=== PATIENT | female | born 1935 | race Caucasian/White ===

== ENCOUNTER 2016-07-13 20:19 | Emergency (ER) | payer OTHER, MEDICARE ==
[~2016-07-13] VITALS: Ht 157.5 cm; Wt 49.9 kg
[~2016-07-13 20:19] MED LIST: ACETAMINOPHEN325 M1; ATIVAN0.5 MG; BENADRYL25 MG PO; CARDIZEM CD120 MG; CRANBERRY CONC500 MG; EFFEXOR XR150 MG; ESTRACE0.5 MG; EXELON 9.5 MG9.5 MG; EXELON1 EAC1 TD; FLUOCINONI0.05 %/30 TP; GABAPENTIN100 MG PO; IBUPROFEN 600600 M1; LABETALOL HCL100 MG; MULTIVITAMINS1 EAC7; NAMENDA 10 MG T10 MG; NORCO 5-325 TA1 EACH PO; PENTAZOCINE/NAL1 TA1; PILOCARPINE HCL5 M1; PRAVACHOL40 MG PO; PREDNISONE 5 MG5 M1 PO; PREDNISONE50 MG PO; PRELIEF65 MG PO; RESTORIL15 MG; SENOKOT-S1 TA1; SEROQUEL 25 MG25 M1 PO; STOOL SOFTENER100 MG PO; TRAMADOL 50 MG50 MG PO; TRAZODONE 150150 M1; TYLENOL325 MG PO; VITAMIN D400 UNI1; ZOLOFT100 MG; [UNRECOGNIZED DRUG - OTHER]; [UNRECOGNIZED DRUG - REMARK]
[2016-07-13] MEDS ORDERED: IBUPROFEN 200200 M1 (20:35)
[2016-07-13] MEDS ORDERED: ALEVE220 MG (20:35)
[2016-07-13] MEDS ORDERED: CENTRUM SILVER1 EAC4 PO (20:37)
[2016-07-13] MEDS ORDERED: TRAZODONE HCL50 MG PO (20:41)
[2016-07-13] MEDS ORDERED: ARICEPT 5 MG TAB5 MG (20:42)
[2016-07-13] MEDS ORDERED: PRELIEF (20:45)
[2016-07-13] MEDS ORDERED: CLARITIN10 MG PO (20:45)
[2016-07-13] MEDS ORDERED: SENOKOT8.6 MG (20:45)
[2016-07-13] MEDS ORDERED: PREDNISONE 5 MG5 M1 PO (20:46)
[2016-07-13] MEDS ORDERED: DAPSONE25 MG (20:46)
[2016-07-13] MEDS ORDERED: XALATAN2.5 ML (20:46)
[2016-07-13] MEDS ORDERED: LIPITOR 20 MG T20 M1 PO (20:47)
[2016-07-13] MEDS ORDERED: BENADRYL25 MG (20:47)
[2016-07-13] MEDS ORDERED: ATIVAN0.5 MG (20:47)
[2016-07-13] MEDS ORDERED: REQUIP 0.25 M0.25 MG (20:48)
[2016-07-13 21:52] VITALS: BP 127/56
== END 2016-07-13 21:57 | disposition home or self-care (01) ==
LOC: ER 20:19
DX: F41.0 Panic disorder [episodic paroxysmal anxiety] (principal); G30.8 Other Alzheimer's disease; F02.80 Dementia in other diseases classified elsewhere, unspecified severity, without behavioral disturbance, psychotic disturbance, mood disturbance, and anxiety; Z90.721 Acquired absence of ovaries, unilateral; Z90.49 Acquired absence of other specified parts of digestive tract; Z96.653 Presence of artificial knee joint, bilateral; I10 Essential (primary) hypertension

== ENCOUNTER 2016-08-02 16:00 | Emergency (ER) | payer OTHER, MEDICARE ==
[~2016-08-02] VITALS: Ht 157.5 cm; Wt 49.9 kg
--- NOTE | ~2016-08-02 | EKG ---
[address] [address] ELECTROCARDIOGRAM REPORT Name: AMANDA HERNÁNDEZ [id number] Admission: 08/02/16 Attend Phys: Discharge: 08/02/16 Date of : 37 Report #: [id number] THIS REPORT FOR: //name// [facility] ED Test Date: 2016-08-02 Test Time: 16:45:25 Pat Name: AMANDA HERNÁNDEZ Department: Room: Gender: F Dynamite Shooter: JULIETA : 1935 Requested By: Shobha Wilhelm Order Number: [id number] MD: Nico Nicole Measurements Intervals [place] Rate: 53 P: 31 ME: 68 QRS: 60 QRSD: 85 T: 62 QT: 461 QTc: 433 Interpretive Statements Sinus rhythm Short ME interval No previous ECG available for comparison Electronically Signed On 08-03-2016 16:05:32 ASSET PROTECTION PROFESSIONAL by Nico Nicole [email or web address] <ELECTRONICALLY SIGNED> By: Nico Nicole MD 08/03/16 1605 1645 1645 Nico Nicole MD /EFREM
[~2016-08-02 16:00] MED LIST changes: +ALEVE220 MG; +ARICEPT 5 MG TAB5 MG; +BENADRYL25 MG; +CENTRUM SILVER1 EAC4 PO; +CLARITIN10 MG PO; +DAPSONE25 MG; +IBUPROFEN 200200 M1; +LIPITOR 20 MG T20 M1 PO; +PRELIEF; +REQUIP 0.25 M0.25 MG; +SENOKOT8.6 MG; +TRAZODONE HCL50 MG PO; +XALATAN2.5 ML
[2016-08-02 16:23] LABS: BASOPHILS 0.3 % (0.0-2.0); EOSINOPHILS 1.3 % (0.0-3.0); HEMATOCRIT 36.7 % (37.0-47.0); HEMOGLOBIN 12.6 gm/dL (12.0-15.0); LYMPHOCYTES 29.5 % (24.0-44.0); MCH 34.1 pg (26.0-34.0); MCHC 34.3 % (28.0-37.0); MCV 99.3 fL (80.0-100.0); PLATELET COUNT 167 thou/uL (150-400); POLYS 59.9 % (36.0-66.0); RDW 12.9 % (10.5-14.5); URINE BILIRUBIN NEGATIVE (Negative); URINE BLOOD NEGATIVE (Negative); URINE COLOR YELLOW; URINE GLUCOSE-RANDOM* NEGATIVE (Negative); URINE KETONES NEGATIVE (Negative); URINE NITRITE NEGATIVE (Negative); URINE PROTEIN (DIPSTICK) NEGATIVE (Negative); URINE SPECIFIC GRAVITY 1.025 (1.003-1.035); URINE UROBILINOGEN 0.2 E.U./dl (0.2-1.0)
[2016-08-02 16:35] LABS: CALCIUM 9.1 mg/dL (8.5-10.1); CREATININE 0.8 mg/dL (0.6-1.3); POTASSIUM 3.8 mmol/L (3.5-5.1)
[2016-08-02 16:39] LABS: MANUAL DIFF NO
[2016-08-02 16:41] LABS: TOTAL PROTEIN 6.5 g/dL (6.4-8.2)
[2016-08-02 17:29] VITALS: BP 116/70
== END 2016-08-02 17:31 | disposition home or self-care (01) ==
LOC: ER 16:00
PROVIDERS: Emergency Medicine
DX: G30.9 Alzheimer's disease, unspecified (principal); F02.80 Dementia in other diseases classified elsewhere, unspecified severity, without behavioral disturbance, psychotic disturbance, mood disturbance, and anxiety; F91.8 Other conduct disorders; I10 Essential (primary) hypertension; Z90.89 Acquired absence of other organs

== ENCOUNTER 2017-08-30 11:57 | Emergency (ER) | payer OTHER, MEDICARE ==
[~2017-08-30] VITALS: Ht 154.9 cm; Wt 49.9 kg
--- NOTE | ~2017-08-30 | EKG ---
[place] [address] [facility] [place] [address] ELECTROCARDIOGRAM REPORT Name: AMANDA HERNÁNDEZ [facility] [id number] Admission: 08/30/17 Attend Phys: Discharge: 08/30/17 Date of : 36 Report #: [id number] THIS REPORT FOR: //name// [facility] ED Test Date: 2017-08-30 Test Time: 12:24:50 Pat Name: AMANDA HERNÁNDEZ Department: Room: Gender: F Net Developer Consultant: Agusto TUCKER : 1935 Requested By: Satish Gil Order Number: [id number] MD: Tano Franklin Measurements Intervals [place] Rate: 77 P: 68 RI: 202 QRS: 15 QRSD: 102 T: 56 QT: 377 QTc: 427 Interpretive Statements Sinus rhythm No significant abnormality Compared to ECG 08/31/2016 11:27:12 Atrial-paced complex(es) or rhythm no longer present Electronically Signed On 08-30-2017 15:34:04 TELEVISION HOST by Tano Franklin [email or web address] <ELECTRONICALLY SIGNED> By: Tano Franklin MD, [facility] 08/30/17 1534 D: [id number] 1224 Tano Franklin MD, FACC /EPI
[2017-08-30 12:58] LABS: ABSOLUTE NEUTROPHILS 4.1 thou/uL (1.4-8.2); BASOPHILS 0.6 % (0.0-2.0); EOSINOPHILS 0.9 % (0.0-3.0); HEMATOCRIT 38.2 % (37.0-47.0); HEMOGLOBIN 13.4 gm/dL (12.0-15.0); LYMPHOCYTES 11.6 % (24.0-44.0); MCH 32.7 pg (26.0-34.0); MCV 93.6 fL (80.0-100.0); MONOCYTES 10.9 % (1.0-8.0); PLATELET COUNT 146 thou/uL (150-400); RBC 4.08 mil/uL (4.20-5.00); RDW 13.1 % (10.5-14.5); WBC 5.4 thou/uL (4.0-11.0)
[2017-08-30 13:08] LABS: ANION GAP 7 mmol/L (7-16); BUN 23 mg/dL (7-18); CALCIUM 8.6 mg/dL (8.5-10.1); CHLORIDE 108 mmol/L (98-107); CO2 26 mmol/L (21-32); CREATININE 0.7 mg/dL (0.6-1.0); GLUCOSE 107 mg/dL (74-106); POTASSIUM 3.8 mmol/L (3.5-5.1); SODIUM 141 mmol/L (136-145)
[2017-08-30 13:16] LABS: TROPONIN-I < 0.04 ng/mL (<0.06)
[2017-08-30 13:26] LABS: URINE BILIRUBIN NEGATIVE (Negative); URINE BLOOD NEGATIVE (Negative); URINE CLARITY CLEAR; URINE COLOR YELLOW; URINE GLUCOSE-RANDOM* NEGATIVE (Negative); URINE KETONES NEGATIVE (Negative); URINE LEUKOCYTES-REFLEX NEGATIVE (Negative); URINE NITRITE-REFLEX NEGATIVE (Negative); URINE PROTEIN (DIPSTICK) NEGATIVE (Negative); URINE SPECIFIC GRAVITY >= 1.030 (1.005-1.035); URINE UROBILINOGEN 0.2 E.U./dl (0.2-1.0)
[2017-08-30] MEDS ORDERED: ZPAK PO (14:02)
[2017-08-30] MEDS ORDERED: MUCINEX600 MG PO (14:02)
[2017-08-30] MEDS ORDERED: OSELB75 PO (14:10)
[2017-08-30 14:16] VITALS: BP 111/49
== END 2017-08-30 14:17 | disposition home or self-care (01) ==
LOC: ER 11:57
PROVIDERS: Physician Assistant
DX: J18.9 Pneumonia, unspecified organism (principal); G30.9 Alzheimer's disease, unspecified; F02.80 Dementia in other diseases classified elsewhere, unspecified severity, without behavioral disturbance, psychotic disturbance, mood disturbance, and anxiety; I10 Essential (primary) hypertension; Z90.49 Acquired absence of other specified parts of digestive tract

== ENCOUNTER 2018-03-06 20:14 | Emergency (ER) | payer OTHER, MEDICARE ==
[~2018-03-06] VITALS: Ht 154.9 cm; Wt 49.9 kg
[~2018-03-06 20:14] MED LIST changes: +MUCINEX600 MG PO; +OSELB75 PO; +ZPAK PO
[2018-03-06 20:49] LABS: HEMATOCRIT 38.8 % (37.0-47.0); HEMOGLOBIN 13.6 gm/dL (12.0-15.0); MCH 32.6 pg (26.0-34.0); MCV 93.1 fL (80.0-100.0); RBC 4.17 mil/uL (4.20-5.00); RDW 12.8 % (10.5-14.5); WBC 5.9 thou/uL (4.0-11.0)
[2018-03-06 20:59] LABS: CALCIUM 8.9 mg/dL (8.5-10.1); CREATININE 0.7 mg/dL (0.6-1.0)
[2018-03-06 21:38] VITALS: BP 128/92
== END 2018-03-06 21:38 | disposition home or self-care (01) ==
LOC: ER 20:14
PROVIDERS: Emergency Medicine
DX: M54.2 Cervicalgia (principal); R41.0 Disorientation, unspecified; I10 Essential (primary) hypertension; G30.9 Alzheimer's disease, unspecified; F02.80 Dementia in other diseases classified elsewhere, unspecified severity, without behavioral disturbance, psychotic disturbance, mood disturbance, and anxiety; Z90.49 Acquired absence of other specified parts of digestive tract; Z96.653 Presence of artificial knee joint, bilateral; W18.39XA Other fall on same level, initial encounter; Y92.89 Other specified places as the place of occurrence of the external cause; Y93.89 Activity, other specified; Y99.8 Other external cause status

== ENCOUNTER 2018-04-25 15:37 | Inpatient (IN) | payer OTHER, MEDICARE ==
[~2018-04-25] VITALS: Ht 154.9 cm; Wt 50.1 kg
--- NOTE | ~2018-04-25 | EKG ---
[address] [address] ELECTROCARDIOGRAM REPORT Name: AMANDA HERNÁNDEZ Room #: 170-7 ADM IN M.R.#: [id number] Admission: 04/25/18 Attend Phys: Surya Talamantes MD Discharge: Date of : 36 Report #: [id number] THIS REPORT FOR: //name// [facility] ED Test Date: 2018-04-25 Test Time: 16:04:11 Pat Name: AMANDA HERNÁNDEZ Department: Room: 170 Gender: F Timber Appraiser: REMBERTO : 1935 Requested By: Nichole Bill Order Number: [id number] MD: Nico Nicole Measurements Intervals [place] Rate: 76 P: 36 MD: 163 QRS: 2 QRSD: 90 T: 32 QT: 367 QTc: 413 Interpretive Statements Sinus rhythm Nonspecific T abnrm, anterolateral leads Compared to ECG 08/30/2017 12:24:50 No significant changes Electronically Signed On 04-25-2018 17:01:53 CDT by Nico Nicole [email or web address] <ELECTRONICALLY SIGNED> By: Nico Nicole MD 04/25/18 170 03 03 Nico Nicole MD /EFREM
--- NOTE | ~2018-04-25 | 2DMMODE ---
[address] [place] [address] 2 D/M-MODE ECHOCARDIOGRAM Name: AMANDA HERNÁNDEZ Room #: 214-P ADM IN M.R.#: [id number] Admission: 04/25/18 Attend Phys: Britany Yip Discharge: Date of : 37 Date of Service: 04/26/18 1133 Report #: [id number] THIS REPORT FOR: //name// APPROVED REPORT Study performed: 04/26/2018 10:15:46 EXAM: Comprehensive 2D, Doppler, and color-flow Echocardiogram Patient Location: Bedside Room #: 214 Status: routine HR: 89 bpm BP: 116/39 mmHg Rhythm: NSR Other Information Study Quality: Adequate/no patient cooperation. Indications Elevated troponin. Hx: SSS status post pacemaker, HTN, HLP 2D Dimensions RVDd: 33.31 mm IVSd: 11.23 (7-11mm) LVOT Diam: 19.51 (18-24mm) LVDd: 37.86 mm PWd: 9.90 (7-11mm) Ascending Ao: 29.04 (22-36mm) LVDs: 29.96 (25-40mm) Aortic Root: 29.36 mm Volumes Left Atrial Volume (Systole) Single Plane 4CH: 47.32 mL Single Plane 2CH: 50.53 mL Aortic Valve AoV Peak Ryder.: 1.67 m/s AO Peak Gr.: 11.22 mmHg LVOT Max P.58 mmHg LVOT Max V: 1.28 m/s SLIM Vmax: 2.29 cm2 Mitral Valve E/A Ratio: 0.6 MV Decel. Time: 180.37 ms MV E Max Ryder.: 0.81 m/s MV A Ryder.: 1.36 m/s MV PHT: 52.31 [place] [address] 2 D/M-MODE ECHOCARDIOGRAM Name: EDGARAMANDA Room #: 214-P ADM IN M.R.#: [id number] Admission: 04/25/18 Attend Phys: Britany Yip Discharge: Date of : 37 Date of Service: 04/26/18 1133 Report #: [id number] IVRT: 86.51 ms Pulmonary Valve PV Peak Ryder.: 0.99 m/s PV Peak Gr.: 3.95 mmHg Pulmonary Vein P Vein S: 0.83 m/s P Vein A: 0.47 m/s P Vein D: 0.40 m/s P Vein A Dur.: 121.1 msec P Vein S/D Ratio: 2.08 Tricuspid Valve TR Peak Ryder.: 3.44 m/s RAP Estimate: 5.00 mmHg TR Peak Gr.: 47.43 mmHg PA Pressure: 52.00 mmHg Left Ventricle The left ventricle is normal size. Regional wall motion abnormalities are noted. There is normal left ventricular wall thickness. Left ventricular systolic function is severely decreased. LVEF is 30%. Extensive anterolateral, septal hypokinesis; best contractile function at base of heart. 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 Right Ventricle The right ventricle is normal size. The right ventricular systolic function is normal. Pacemaker lead is present in the right ventricle. Atria The left atrium size is normal. The right atrium size is normal. Aortic Valve The Aortic valve is mildly sclerotic. No aortic regurgitation is present. There is no aortic valvular stenosis. Mitral Valve The mitral valve is normal in structure. Mild mitral regurgitation. No evidence of mitral valve stenosis. Tricuspid Valve The tricuspid valve is normal in structure. Mild tricuspid regurgitation. Estimated PAP is 50-55mmHg. Pulmonic Valve Pulmonic valve is not well visualized. Trace pulmonic [address] [place] [address] 2 D/M-MODE ECHOCARDIOGRAM Name: AMANDA HERNÁNDEZ Room #: 214-P [facility] IN .R.#: [id number] Admission: 04/25/18 Attend Phys: Britany Yip Discharge: Date of : 37 Date of Service: 04/26/18 1133 Report #: [id number] regurgitation. Great Vessels The aortic root is normal in size. The ascending aorta is normal in size. IVC is normal in size and collapses >50% with inspiration. Pericardium Small pericardial effusion noted. <Conclusion> Left ventricular systolic function is severely decreased. LVEF is 30%. Extensive anterolateral, apical, septal hypokinesis; best contractile function at base of heart. 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 The aortic valve is mildly sclerotic. No aortic regurgitation or stenosis The mitral valve is normal in structure. Mild mitral regurgitation. Mild tricuspid regurgitation. Estimated pulmonary artery pressure of 50-55mmHg. Small pericardial effusion noted. <ELECTRONICALLY SIGNED> By: Tano Franklin MD, FACC 04/26/18 1133 1133 1133 Tano Franklin MD, FACC /INF
--- NOTE | ~2018-04-25 | EKG ---
[address] [address] ELECTROCARDIOGRAM REPORT Name: AMANDA HERNÁNDEZ Room #: 214-P ADM IN M.R.#: [id number] Admission: 04/25/18 Attend Phys: Surya Talamantes MD Discharge: Date of : 36 Report #: [id number] THIS REPORT FOR: //name// [facility] Test Date: 2018-04-26 Test Time: 08:48:20 Pat Name: AMANDA HERNÁNDEZ Department: Room: 214 P Gender: F Shadowgraph Operator: WILD : 1935 Requested By: Susy Jerry Order Number: [id number] MD: Nico Nicole Measurements Intervals [place] Rate: 84 P: 57 ND: 185 QRS: 78 QRSD: 79 T: 134 QT: 423 QTc: 501 Interpretive Statements Sinus arrhythmia Abnrm T, consider ischemia, anterolateral lds Compared to ECG 04/25/2018 16:04:11 Possible ischemia now present Sinus rhythm no longer present Electronically Signed On 04-27-2018 17:01:53 CDT by Nico Nicole [email or web address] <ELECTRONICALLY SIGNED> By: Nico Nicole MD 04/27/18 1701 0848 0848 Nico Nicole MD /EFREM
[2018-04-25 15:37] VITALS: BP 112/54
[2018-04-25 16:10] LABS: URINE BILIRUBIN NEGATIVE (Negative); URINE BLOOD 1+ (Negative); URINE CLARITY SL CLOUDY; URINE COLOR YELLOW; URINE GLUCOSE-RANDOM* NEGATIVE (Negative); URINE KETONES NEGATIVE (Negative); URINE NITRITE-REFLEX NEGATIVE (Negative); URINE PROTEIN (DIPSTICK) 1+ (Negative); URINE SPECIFIC GRAVITY >= 1.030 (1.005-1.035); URINE UROBILINOGEN 0.2 E.U./dl (0.2-1.0)
[2018-04-25 16:10] LABS: ABSOLUTE NEUTROPHILS 11.7 thou/uL (1.4-8.2); BASOPHILS 0.2 % (0.0-2.0); EOSINOPHILS 0.1 % (0.0-3.0); HEMATOCRIT 36.5 % (37.0-47.0); HEMOGLOBIN 12.6 gm/dL (12.0-15.0); LYMPHOCYTES 4.9 % (24.0-44.0); MCH 32.6 pg (26.0-34.0); MCHC 34.6 g/dL (28.0-37.0); MCV 94.3 fL (80.0-100.0); MONOCYTES 9.6 % (1.0-8.0); PLATELET COUNT 157 thou/uL (150-400); POLYS 85.2 % (36.0-66.0); RBC 3.87 mil/uL (4.20-5.00); RDW 13.2 % (10.5-14.5); WBC 13.8 thou/uL (4.0-11.0)
[2018-04-25 16:11] LABS: URINE LEUKOCYTES-REFLEX 1+ (Negative)
[2018-04-25 16:13] LABS: CALCIUM 8.8 mg/dL (8.5-10.1); CREATININE 0.8 mg/dL (0.6-1.0); POTASSIUM 4.2 mmol/L (3.5-5.1)
[2018-04-25 16:16] LABS: SQUAMOUS 0-3 Few /LPF (0-3)
[2018-04-25 16:17] LABS: CASTS None Seen /LPF (None Seen); CRYSTALS None Seen /LPF (None Seen); TRANSITIONAL EPITHEL CELL 0-3 Few /LPF (None Seen); URINE WBC-REFLEX 6-15 Few /HPF (0-5)
[2018-04-25 16:18] LABS: URINE RBC 0-2 Rare /HPF (0-2)
[2018-04-25 16:21] LABS: ALBUMIN 3.1 g/dL (3.4-5.0); TOTAL BILIRUBIN 0.9 mg/dL (<0.1-1.0); TOTAL PROTEIN 6.9 g/dL (6.4-8.2); TROPONIN-I 0.13 ng/mL (<0.06)
[2018-04-25 17:01] VITALS: BP 103/49
[2018-04-25 17:03] VITALS: BP 103/49
[2018-04-25] MEDS ORDERED: CRESTOR5 MG PO (17:55)
[2018-04-25] MEDS ORDERED: REMERON15 MG PO (17:58)
[2018-04-25] MEDS ORDERED: XOLAIR150 MG SUBQ (18:02)
[2018-04-25 20:35] VITALS: BP 109/45
[2018-04-26 03:24] LABS: ALBUMIN 2.6 g/dL (3.4-5.0); CALCIUM 7.7 mg/dL (8.5-10.1); CREATININE 0.7 mg/dL (0.6-1.0); POTASSIUM 3.7 mmol/L (3.5-5.1); TOTAL BILIRUBIN 0.5 mg/dL (<0.1-1.0); TOTAL PROTEIN 5.2 g/dL (6.4-8.2); TROPONIN-I 0.12 ng/mL (<0.06)
[2018-04-26 04:45] VITALS: BP 110/48
[2018-04-26 07:44] VITALS: BP 116/39
[2018-04-26 11:39] VITALS: BP 105/51
[2018-04-26 20:30] VITALS: BP 118/50
[2018-04-27 04:45] VITALS: BP 131/62
[2018-04-27 08:16] VITALS: BP 126/61
[2018-04-27 13:14] VITALS: BP 114/71
[2018-04-27 16:46] VITALS: BP 108/50
[2018-04-27 20:11] VITALS: BP 212/185
[2018-04-28 03:41] VITALS: BP 116/55
[2018-04-28 08:13] VITALS: BP 122/57
[2018-04-28 08:22] VITALS: BP 145/64
[2018-04-28 11:51] VITALS: BP 93/44
[2018-04-28 17:07] VITALS: BP 148/84
[2018-04-28 19:33] VITALS: BP 118/51
[2018-04-29 04:22] VITALS: BP 102/55
[2018-04-29 07:50] VITALS: BP 104/54
[2018-04-29 11:20] VITALS: BP 92/58
[2018-04-29 16:46] VITALS: BP 93/52
[2018-04-29 19:45] VITALS: BP 107/49
[2018-04-30 03:35] VITALS: BP 125/53
[2018-04-30 07:47] VITALS: BP 134/54
[2018-04-30 12:01] VITALS: BP 127/49
[2018-04-30 16:32] VITALS: BP 126/55
[2018-04-30 20:15] VITALS: BP 146/83
[2018-05-01 04:35] LABS: HEMOGLOBIN 10.9 gm/dL (12.0-15.0); MCHC 35.2 g/dL (28.0-37.0); MCV 93.8 fL (80.0-100.0); RBC 3.31 mil/uL (4.20-5.00); RDW 12.8 % (10.5-14.5); WBC 6.6 thou/uL (4.0-11.0)
[2018-05-01 04:44] VITALS: BP 126/64
[2018-05-01 04:50] LABS: CALCIUM 8.7 mg/dL (8.5-10.1); CREATININE 0.7 mg/dL (0.6-1.0); POTASSIUM 3.9 mmol/L (3.5-5.1)
[2018-05-01 07:55] VITALS: BP 129/68
[2018-05-01 11:18] VITALS: BP 100/53
== END 2018-05-01 14:55 | disposition short-term general hospital (02) | DRG 871 ==
LOC: ER 15:37 → EROBS 16:50 → 2N 16:50
PROVIDERS: Family Medicine; Hospitalist; Physician Assistant
DX: A41.9 Sepsis, unspecified organism (principal); I50.21 Acute systolic (congestive) heart failure; I21.4 Non-ST elevation (NSTEMI) myocardial infarction; E43 Unspecified severe protein-calorie malnutrition; N39.0 Urinary tract infection, site not specified; G30.9 Alzheimer's disease, unspecified; F02.80 Dementia in other diseases classified elsewhere, unspecified severity, without behavioral disturbance, psychotic disturbance, mood disturbance, and anxiety; Z96.653 Presence of artificial knee joint, bilateral; I49.5 Sick sinus syndrome; Z66 Do not resuscitate; E78.5 Hyperlipidemia, unspecified; I11.0 Hypertensive heart disease with heart failure; M62.84 Sarcopenia; M19.90 Unspecified osteoarthritis, unspecified site; G47.00 Insomnia, unspecified; Z90.49 Acquired absence of other specified parts of digestive tract; Z95.0 Presence of cardiac pacemaker; Z79.82 Long term (current) use of aspirin; Z79.899 Other long term (current) drug therapy; Z87.891 Personal history of nicotine dependence; Z23 Encounter for immunization
CPT/HCPCS: 10081

== ENCOUNTER 2021-01-31 14:14 | Inpatient (IN) | payer OTHER, MEDICARE ==
[~2021-01-31] VITALS: Ht 160 cm; Wt 59.0 kg
--- NOTE | ~2021-01-31 | EEG ---
[facility] [place] [address] ELECTROENCEPHALOGRAM Name: AMANDA HERNÁNDEZ Room #: 453-P [facility] IN M.R.#: [id number] Admission: 01/31/21 Attend Phys: Vincent Licona Discharge: Date of : 36 Report #: [id number] THIS REPORT FOR: //name// DATE OF SERVICE: 02/01/2021 This patient's EEG was done by placing the electrode by standard 10-20 system of electrode placement. Both referential and sequential montages were used for recording. Background activity in this patient's EEG is about 6-7 Hz and 30 microvolt. The patient went to sleep, that is associated with bilateral slowing and vertex sharp waves. Photic stimulation is unremarkable. Throughout the record, no active epileptiform activity was noticed. IMPRESSION: This is an abnormal EEG because it is disorganized and poorly formed, that is a nonspecific abnormality which can occur with encephalopathy, dementia, effect of psychotropic medication, etc. Clinical correlation is recommended. By: 1618 0003 Josh Mondragon MD /nt
--- NOTE | ~2021-01-31 | HC ---
[facility] [place] [address] CONSULTATION Name: AMANDA HERNÁNDEZ Room #: 453-P ADM IN M.R.#: [id number] Admission: 01/31/21 Attend Phys: Vincent Beasley Discharge: Date of : 36 Report #: [id number] THIS REPORT FOR: cc: Marcos Arellano MD,Marcos Mondragon,Josh Christopher MD ~ DATE OF SERVICE: 02/01/2021 HISTORY OF PRESENT ILLNESS: This is an 85-year-old female patient who was evaluated by me for altered mental status. I tried to see this patient yesterday and today. Both times, she will neither talk to me nor will do any cooperation with neurological examination. History is entirely from the record for the time being. As I understand, she had bilateral knee replacements, history of appendectomy, history of prior hypertension, hyperlipidemia, and urinary tract infection. She has a pacemaker. She had a history of anxiety and aggressive behavior. She also has a history of pneumonia and sepsis. Some of the records says she has an Alzheimer dementia. She has a skin condition. She has a history of panic attack. She has a history of syncope. This was a relevant 14-point review of systems. PAST MEDICAL HISTORY: Positive for Alzheimer as per records. FAMILY HISTORY: Unavailable. SOCIAL HISTORY: Also unavailable. PHYSICAL EXAMINATION: Her examination both times was pretty limited. She did not do anything for me. She will not follow any command. She will not say anything initially, but then also go away. She will not move anything for me. There is no meningeal sign. There is no carotid bruit. She is moderately built individual. I think she can hear. I think she can see. Her blood pressure is 135/43, respirations 16, pulse is 64, and temperature is 92.6. IMPRESSION: I do not know what the etiology of the patient's symptoms is and I have tried to examine this patient twice, but is unable to get any cooperation from her. If she has Alzheimer's and she has multiple problems, one of the things can be considered as hospice care and not to do much workup on her. She already had a chest CT and a carotid Doppler. I will try to get an EEG done. I will suggest talking to her and making her comfort care if that can be done or at least the palliative care. Thank you very much for this referral. By: 1312 2231 Josh Mondragon MD /nt
[2021-01-31 14:14] VITALS: BP 114/41
[~2021-01-31 14:14] MED LIST changes: +CRESTOR5 MG PO; +REMERON15 MG PO; +XOLAIR150 MG SUBQ
[2021-01-31 15:23] LABS: ABSOLUTE NEUTROPHILS 12.7 thou/uL (1.4-8.2); BASOPHILS 0.5 % (0.0-2.0); EOSINOPHILS 0.3 % (0.0-3.0); HEMATOCRIT 41.5 % (37.0-47.0); HEMOGLOBIN 14.2 gm/dL (12.0-15.0); LYMPHOCYTES 4.2 % (24.0-44.0); MCH 32.5 pg (26.0-34.0); MCHC 34.3 g/dL (28.0-37.0); MCV 94.8 fL (80.0-100.0); MONOCYTES 4.5 % (1.0-8.0); PLATELET COUNT 163 thou/uL (150-400); POLYS 90.5 % (36.0-66.0); RBC 4.38 mil/uL (4.20-5.00); RDW 12.9 % (10.5-14.5); WBC 14.1 thou/uL (4.0-11.0)
[2021-01-31 15:32] LABS: BE(vivo) -0.7 mmol/L (-2 to +3); HCO3 23.3 mmol/L (22.0-26.0); PCO2 36.9 mmHg (35.0-45.0); PO2 67.7 mmHg (80.0-100.0); pH 7.419 (7.360-7.450); sO2 93.9 % (92.0-98.0)
[2021-01-31 15:40] LABS: CALCIUM 7.9 mg/dL (8.5-10.1); CREATININE 0.6 mg/dL (0.6-1.0); POTASSIUM 4.5 mmol/L (3.5-5.1)
[2021-01-31 15:54] LABS: ALBUMIN 3.4 g/dL (3.4-5.0); TOTAL BILIRUBIN 1.3 mg/dL (0.2-1.0); TOTAL PROTEIN 5.9 g/dL (6.4-8.2)
[2021-01-31 16:02] LABS: MAGNESIUM 2.1 mg/dL (1.8-2.4); PHOSPHORUS 3.6 mg/dL (2.6-4.7)
[2021-01-31 16:03] LABS: TROPONIN-I <0.06 ng/mL (<0.06)
[2021-01-31 16:13] LABS: URINE BILIRUBIN NEGATIVE (Negative); URINE BLOOD NEGATIVE (Negative); URINE CLARITY CLEAR; URINE COLOR YELLOW; URINE GLUCOSE-RANDOM* NEGATIVE (Negative); URINE KETONES 2+ (Negative); URINE LEUKOCYTES-REFLEX NEGATIVE (Negative); URINE NITRITE-REFLEX NEGATIVE (Negative); URINE PROTEIN (DIPSTICK) NEGATIVE (Negative)
[2021-01-31 16:18] LABS: DIRECT BILIRUBIN 0.2 mg/dL (<0.1-0.2)
--- NOTE | 2021-01-31 16:48 | NUR ---
ED PROVIDER GOING OVER CARE PLAN WITH PT SPOUSE AT THIS TIME
--- NOTE | 2021-01-31 16:59 | NUR ---
PT SPOUSE AT BEDSIDE STATES PT HAS DEMENTIA X16 YEARS. PT STATED TO BE NON VERBAL GENERALLY ONLY SAYS YES AND NO TO QUESTIONS. PT SPOUSE STATES PT NORMALLY SWALLOWS HER MEDICATIONS ON HER OWN BUT SOMETIMES REFUSES TO DO SO. PT USES WALKER BUT MORE RECENTLY HAS BEEN USING WHEELCHAIR TO GET AROUND. PT SPOUSE DENIES RECENT FALLS
--- NOTE | 2021-01-31 19:08 | NUR ---
REPORT GIVEN TO RICH JENNINGS AT THIS TIME
[2021-02-01] VITALS (7 sets, daily range): BP systolic 135–164; BP diastolic 38–63
[2021-02-01 05:25] LABS: HEMATOCRIT 38.4 % (37.0-47.0); HEMOGLOBIN 13.2 gm/dL (12.0-15.0); MCH 32.5 pg (26.0-34.0); MCHC 34.2 g/dL (28.0-37.0); RBC 4.04 mil/uL (4.20-5.00); RDW 12.9 % (10.5-14.5); WBC 7.6 thou/uL (4.0-11.0)
--- NOTE | 2021-02-01 09:46 | EKG ---
[address] [place] [address] ELECTROCARDIOGRAM REPORT Name: AMANDA HERNÁNDEZ Room #: 170-16 ADM IN M.R.#: [id number] Admission: 01/31/21 Attend Phys: Vincent Beasley Discharge: Date of : 36 Report #: [id number] [facility] ED Test Date: 2021-01-31 Test Time: 14:13:28 Pat Name: AMANDA HERNÁNDEZ Department: Room: 170 Gender: F Floor Scraper: MOLINA : 1935 Requested By: Jensen Duran Order Number: [id number] MD: Tano Franklin Measurements Intervals [employer] Rate: 71 P: 23 HI: 57 QRS: 57 QRSD: 79 T: 80 QT: 408 QTc: 444 Interpretive Statements Sinus rhythm Nonspecific T abnrm Compared to ECG 04/26/2018 08:48:20 T wave abnormality is less pronounced Electronically Signed On 02-01-2021 9:45:50 CDT by Tano Franklin [email or web address] <ELECTRONICALLY SIGNED> By: Tano Franklin MD, [facility] 02/01/21 0945 1413 141 Tano Franklin MD, FACC /EPI
[2021-02-01] MEDS ORDERED: ADVIL200 M3 PO (10:32)
[2021-02-01] MEDS ORDERED: PRILOSEC OTC20 MG PO (10:33)
--- NOTE | 2021-02-01 16:13 | 2DMMODE ---
[facility] [address] [place] [address] 2 D/M-MODE ECHOCARDIOGRAM Name: AMANDA HERNÁNDEZ Room #: 170-16 ADM IN M.R.#: [id number] Admission: 01/31/21 Attend Phys: Vincent Fall Ashlyntyler Discharge: Date of : 37 Report #: [id number] THIS REPORT FOR: cc: Marcos Arellano MD,Marcos Franklin,Tano Penny MD [facility] ~ APPROVED REPORT Study performed: 02/01/2021 14:19:55 EXAM: Comprehensive 2D, Doppler, and color-flow Echocardiogram Patient Location: ER Room #: 16 Status: routine BSA: 1.61 HR: 69 bpm BP: 159/48 mmHg Rhythm: Pacemaker Other Information Study Quality: Adequate Indications Pacemaker Syncope 2D Dimensions IVC: 21.00 mm Aortic Valve AoV Peak Ryder.: 1.24 m/s AO Peak Gr.: 6.16 mmHg LVOT Max P.62 mmHg LVOT Max V: 1.19 m/s Mitral Valve E/A Ratio: 0.7 MV Decel. Time: 266.20 ms MV E Max Ryder.: 0.84 m/s MV A Ryder.: 1.14 m/s MV PHT: 77.20 ms IVRT: 124.57 ms Pulmonary Valve PV Peak Ryder.: 1.21 m/s PV Peak Gr.: 5.86 mmHg [facility] [address] [place] [address] 2 D/M-MODE ECHOCARDIOGRAM Name: AMANDA HERNÁNDEZ Room #: 170-16 ADM IN M.R.#: [id number] Admission: 01/31/21 Attend Phys: Vincent Goldberg Discharge: Date of : 37 Report #: [id number] Pulmonary Vein P Vein S: 0.41 m/s P Vein A: 0.36 m/s P Vein D: 0.32 m/s P Vein A Dur.: 147.6 msec P Vein S/D Ratio: 1.28 Tricuspid Valve TR Peak Ryder.: 2.94 m/s TR Peak Gr.: 34.46 mmHg PA Pressure: 44.00 mmHg Left Ventricle The left ventricle is normal size. There is normal LV segmental wall motion. There is normal left ventricular wall thickness. The left ventricular systolic function is normal. The left ventricular ejection fraction is within the normal range. LVEF is 65%. Mild diastolic dysfunction Right Ventricle The right ventricle is normal size. The right ventricular systolic function is normal. Pacemaker lead is present in the right ventricle. Atria Left atrium is dilated. Right atrium is dilated. Pacemaker lead is present in the right atrium. Aortic Valve The aortic valve is sclerotic. No aortic regurgitation is present. There is no aortic valvular stenosis. Mitral Valve The mitral valve is normal in structure. Mild mitral regurgitation. No evidence of mitral valve stenosis. Tricuspid Valve The tricuspid valve is normal in structure. There is mild tricuspid regurgitation. Estimated PAP 40 mmHg. Pulmonic Valve The pulmonary valve is normal in structure. Trace pulmonic regurgitation. Great Vessels The aortic root is normal in size. IVC is dilated and collapses <50% with inspiration. [facility] [address] [place] [address] 2 D/M-MODE ECHOCARDIOGRAM Name: AMANDA HERNÁNDEZ Room #: 170-16 ADM IN M.R.#: [id number] Admission: 01/31/21 Attend Phys: Vincent Goldberg Discharge: Date of : 37 Report #: [id number] Pericardium There is no pericardial effusion. <Conclusion> The left ventricular systolic function is normal. There is normal LV segmental wall motion. LVEF is 65%. Mild diastolic dysfunction Pacemaker lead is present in the right ventricle. Both atria are dilated. The aortic valve is sclerotic. No aortic regurgitation or stenosis. The mitral valve is normal in structure. Mild mitral regurgitation. There is mild tricuspid regurgitation. Estimated pulmonary artery pressure of 40 mmHg. There is no pericardial effusion. <ELECTRONICALLY SIGNED> By: Tano Franklin MD, FACC 02/01/211612 12 12 Tano Franklin MD, FACC /INF
--- NOTE | 2021-02-01 17:44 | NUR ---
ASSUMED CARE AT SHIFT CHANGE. PT SPOUSE AT BEDSIDE MOST OF THE DAY. SPOUSE STATES PT GETS UP AT HOME WITH 1-2 ASSIST W/GB AND WALKER. SPOUSE UPDATED ON POC AND RECENT TESTS. VSS. SINUS SHARDA TO SR ON MONITOR 50-60'S, INCONTINENT X 3 THIS SHIFT. PT IS NOT ABLE TO FEED SELF. DRINKS FROM CUP WITH STRAW PER SPOUSE. PT ANSWERS YES AND NO QUESTIONS, ORIENTED X FIRST NAME ONLY.
--- NOTE | 2021-02-01 18:07 | NUR ---
SECOND ATTEPMT TO CALL REPORT TO RN ON 4W AT THIS TIME. ON HOLD 5MIN. WILL TAKE PT TO FLOOR AT THIS TIME.
[2021-02-02 00:06] VITALS: BP 137/56
--- NOTE | 2021-02-02 02:02 | NUR ---
ASSUMED CARE OF PT AT 1845HRS. PT IS ALERT BUT ONLY ORIENTED TO PERSON. FALL PRECAUTION IN PLACE. PT AND (DILIP) WAS ORIENTED TO THE UNIT AND THE ROOM. PT FOLLOWS DIRECTIONS BUT DOES NOT REPLY APPROPRIATELY. PT TOOK ALL HS MEDS WHOLE WITH WATER. PT APPERARS COMFORTABLE. NO SYNCOPE NOTED. PT WAS INCT OF BLADDER THIS SHIFT. PT IS A FEEDER. VSS AND NO S/S OF ACUTE DISTRESS. WILL CONTINUE TO MONITOR.
[2021-02-02 04:12] VITALS: BP 149/57
[2021-02-02 07:47] VITALS: BP 139/61
[2021-02-02] MEDS ORDERED: BAYER CHEWABLE81 MG PO (08:26)
[2021-02-02] MEDS ORDERED: SENOKOT-S TABL1 EACH PO (08:38)
[2021-02-02 10:36] VITALS: BP 139/61
--- NOTE | 2021-02-02 11:14 | NUR ---
ASSUMED PT CARE THIS AM. PT ALERT, RESPONDS TO YES/NO QUESTIONS. PATIENT REPORTS NO PAIN. IV PATENT, SALINE LOCKED. PATIENT REPORTS NO NUMBNESS, TINGLING, OR NAUSEA. PATIENT TOOK MORNING MEDICATIONS WITHOUT ISSUE. FALL PRECAUTIONS ARE IN PLACE, CALL LIGHT WITHIN REACH. AT BEDSIDE FOR DISCHAGE TEACHING, AND REPORTS UNDERSTANDING. IV WAS REMOVED, AND TELEMETRY WAS REMOVED. AWAITING PATIENT RIDE AT THIS TIME.
== END 2021-02-02 11:28 | disposition home or self-care (01) | DRG 641 ==
LOC: ER 14:14 → EROBS 18:49 → 4W 02-01 18:27
PROVIDERS: Emergency Medicine; ADMIT Hospitalist; ATTEND Hospitalist
DX: E86.0 Dehydration (principal); E78.5 Hyperlipidemia, unspecified; G30.9 Alzheimer's disease, unspecified; F02.80 Dementia in other diseases classified elsewhere, unspecified severity, without behavioral disturbance, psychotic disturbance, mood disturbance, and anxiety; F41.9 Anxiety disorder, unspecified; I11.0 Hypertensive heart disease with heart failure; Z66 Do not resuscitate; I50.9 Heart failure, unspecified; R13.10 Dysphagia, unspecified; Z96.653 Presence of artificial knee joint, bilateral; Z20.822 Contact with and (suspected) exposure to COVID-19; Z90.49 Acquired absence of other specified parts of digestive tract; Z95.0 Presence of cardiac pacemaker; Z79.899 Other long term (current) drug therapy
CPT/HCPCS: 10045